=== PATIENT | female | born 1995 | race Caucasian/White ===

== ENCOUNTER 2016-10-07 11:00 | Outpatient (RCR) | payer BC, MEDICARE, OTHER, MEDICAID ==
[2016-10-08] MEDS ORDERED: [UNRECOGNIZED DRUG - OTHER] (12:03)
[2016-10-08] MEDS ORDERED: RIZA10TA4 PO (12:03)
[2016-10-08] MEDS ORDERED: [UNRECOGNIZED DRUG - CODE] PO (12:03)
[2016-10-08] MEDS ORDERED: [UNRECOGNIZED DRUG - OTHER] (12:03)
[2016-10-08] MEDS ORDERED: PROBCAP4 PO (12:03)
[2016-10-08] MEDS ORDERED: MAG-84TA PO (12:03)
[2016-10-08] MEDS ORDERED: BACL10TA2 PO (12:03)
[2016-10-08] MEDS ORDERED: LAMI200T3 PO (12:03)
[2016-10-08] MEDS ORDERED: TROK1CAP PO (12:03)
[2016-10-08] MEDS ORDERED: COLA100C PO (12:03)
[2016-10-08] MEDS ORDERED: VITA-115 PO (12:03)
== END 2016-10-08 ==
LOC: M ST 11:00
PROVIDERS: ATTEND Physician Assistant
DX: Z51.89 Encounter for other specified aftercare (principal); S06.890S Other specified intracranial injury without loss of consciousness, sequela; A52.17 General paresis; G81.11 Spastic hemiplegia affecting right dominant side; M76.31 Iliotibial band syndrome, right leg

== ENCOUNTER → 2016-10-18 | Day surgery (SDC) | payer BC, MEDICARE, OTHER, MEDICAID ==
[~2016-10-18] VITALS: Ht 160 cm; Wt 75.3 kg
[~2016-10-18] MED LIST: AMPICILLIN SOD/SULBACTAM SOD 3 GM in D5W MINI-BAG PLUS 100 ML IV ONE; BACL10TA2 PO; CHLORHEXIDINE GLUCONATE 0.12 % 15ML UDC (PERIDEX ORAL RINSE) As Ordered ONE; COLA100C PO; GLYCOPYRROLATE INJ 0.2 MG/ML 2 ML VIAL As Ordered ONE; HYDROmorphone HCL 1 MG/ML SYRINGE (J1170) IV PRN; LAMI200T3 PO; LIDOCAINE 2% INJ 100 MG/5 ML SDV (FOR ANES.) As Ordered ONE; LIDOCAINE 2% W/ EPINEPHRINE 1.7 ML DENTAL INJ As Ordered ONE; LIDOCAINE 2% W/ EPINEPHRINE 1.7 ML DENTAL INJ XX ONE; LR 1,000 ML IV SCH; MAG-84TA PO; MIDAZOLAM INJ 2 MG/2 ML VIAL (J2250) As Ordered ONE; NEOSTIGMINE 1MG/ML 5 ML SYRINGE (J2710) As Ordered ONE; ONDANSETRON 4MG/2ML VIAL (J2405) As Ordered ONE; ONDANSETRON 4MG/2ML VIAL (J2405) IV PRN; OXYMETAZOLINE NASAL SPRAY (AFRIN) As Ordered ONE; PROBCAP4 PO; PROPOFOL 200 MG/20 ML VIAL As Ordered ONE; RIZA10TA4 PO; TROK1CAP PO; VITA-115 PO; [UNRECOGNIZED DRUG - CODE] PO; [UNRECOGNIZED DRUG - OTHER]; [UNRECOGNIZED DRUG - OTHER]; [UNRECOGNIZED DRUG - OTHER] PO; dexameTHASONE 4 MG/ML 1ML VIAL (J1100) IV ONE; fentaNYL 100 MCG/2 ML INJECTION (J3010) As Ordered ONE
[2016-10-18] MEDS: fentaNYL 100 MCG/2 ML INJECTION (J3010) IV PRN ×2 (09:33→09:45)
--- NOTE | 2016-10-18 09:54 | RO ---
DATE OF PROCEDURE: 10/18/2016 PREOPERATIVE DIAGNOSIS: 1. 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 2. Erupted and symptomatic teeth #1 and 16 as well as impacted and symptomatic teeth #17 and 32. POSTOPERATIVE DIAGNOSIS: Status post: 1. 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 2. Erupted and symptomatic teeth #1 and 16 as well as impacted and symptomatic teeth #17 and 32. PROCEDURE PERFORMED: Surgical extraction of teeth #1, 16, 17 and 32. SURGEON: Keven Galaviz DMD, MD RESPIRATORY COORDINATOR: None. ANESTHESIA: General endotracheal anesthesia via nasal IVORY. SPECIMEN: None. INDICATIONS FOR SURGERY: Jennifer is a pleasant, 21-year-old female that was referred to my office for evaluation of her symptomatic wisdom teeth. Past medical history review reveals that she has an extensive history that includes a history of malignant brain tumor that was operated on her with subsequent postoperative complications that included strokes and seizures. She has had an extensive history of surgical interventions with no complications from an anesthesia standpoint. Her clinical exam reveals that she has erupted and carious teeth # 1 and 16, as well as impacted teeth #17 and 32 with inflamed and tender to palpation overlying mucosa and food impaction. Discussion with the patient and the mother regarding the treatment included performing the procedure in an operating room setting and in a controlled environment under the care of the anesthesiologist would be the safest way to go. All the risks, benefits and alternatives were explained to the patient, including the anesthesia risks and postoperative complications, including dry socket and infection. Complete history and physical was performed as well as an informed consent, which was signed by the mom, and they are in the patient's chart. DESCRIPTION OF PROCEDURE: On 10/18/2016, patient presented to the [facility] where she was met by myself and the anesthesiologist. Any last minute questions were addressed. The history and physical and the consent were updated. She was also given preoperative antibiotics in the form of 3 grams of intravenous (IV) Unasyn as well as 8 mg of IV Decadron. At that point, the patient was then taken back to the operating room. She was laid supine on the operating room table. Ulnar nerve protectors were placed. Noninvasive cardiac monitors were applied. At that point, the patient underwent smooth general anesthesia with a nasal IVORY intubation. The tube was then secured to the patient's head with a head wrap. At that point, the patient was then prepped and draped in the usual sterile fashion. A time-out procedure was performed to identify the patient, the procedure and any other precautions. At this point, the procedure began with the insertion of a moist throat pack into the patient's oropharynx, followed by the insertion of a bite block and the administration of 10 carpules of 2% lidocaine with 1:100,000 epinephrine as multiple local infiltrations around the teeth and mandibular blocks. At this point, the procedure proceeded with the routine elevator luxation and removal of teeth #16 and 17. Sockets were copiously irrigated. No sinus exposure was noted and gauze hemostasis was observed. At this point, attention was then given to the lower teeth where the same technique was performed for both sides, namely a full-thickness flap was released with a buccal hockey stick extension in sites #17 and 32, and this was extended to teeth #19 and 30 respectively. At this point, once the flap was fully reflected, the teeth where easily luxated and delivered. An abundant amount of granulation tissue was noted distal to the teeth. This tissue was curetted and removed and the sockets were copiously irrigated. Inferior alveolar nerve was not noted and the lingual cortices were intact. At this point, a single Gelfoam was placed in each socket and the flaps were then closed with #3-0 chromic sutures. Hemostasis was achieved and observed with gauze pressure. At this point, the oral cavity was irrigated and suctioned. The throat pack was removed and the patient was then awakened from general anesthesia and taken back to the postanesthesia care unit (PACU). Complications: None at the time of surgery. Estimated blood loss about 10 mL. Drains: There were no drains placed.
[2016-10-18 11:30] VITALS: BP 118/73
== END | disposition home or self-care (01) ==
LOC: M SDC 05:56
PROVIDERS: ATTEND Dentist
DX: K02.9 Dental caries, unspecified (principal); K01.1 Impacted teeth; E34.9 Endocrine disorder, unspecified; G89.29 Other chronic pain; M25.561 Pain in right knee; M79.671 Pain in right foot; G43.909 Migraine, unspecified, not intractable, without status migrainosus; N39.44 Nocturnal enuresis; K59.00 Constipation, unspecified; E55.9 Vitamin D deficiency, unspecified; R47.01 Aphasia; N25.89 Other disorders resulting from impaired renal tubular function; G40.A09 Absence epileptic syndrome, not intractable, without status epilepticus; R41.841 Cognitive communication deficit; S06.6X9S Traumatic subarachnoid hemorrhage with loss of consciousness of unspecified duration, sequela; Z79.899 Other long term (current) drug therapy; Z98.2 Presence of cerebrospinal fluid drainage device; Z87.2 Personal history of diseases of the skin and subcutaneous tissue; Z85.841 Personal history of malignant neoplasm of brain
CPT/HCPCS: 36415; 84702; 88300; D7210; J1100; J1170; J2250; J2405; J2710; J3010

== ENCOUNTER 2016-11-01 12:30 | Outpatient (RCR) | payer BC, MEDICARE, OTHER, MEDICAID ==
[~2016-11-01 12:30] MED LIST changes: -AMPICILLIN SOD/SULBACTAM SOD 3 GM in D5W MINI-BAG PLUS 100 ML IV ONE; -CHLORHEXIDINE GLUCONATE 0.12 % 15ML UDC (PERIDEX ORAL RINSE) As Ordered ONE; -GLYCOPYRROLATE INJ 0.2 MG/ML 2 ML VIAL As Ordered ONE; -HYDROmorphone HCL 1 MG/ML SYRINGE (J1170) IV PRN; -LIDOCAINE 2% INJ 100 MG/5 ML SDV (FOR ANES.) As Ordered ONE; -LIDOCAINE 2% W/ EPINEPHRINE 1.7 ML DENTAL INJ As Ordered ONE; -LIDOCAINE 2% W/ EPINEPHRINE 1.7 ML DENTAL INJ XX ONE; -LR 1,000 ML IV SCH; -MIDAZOLAM INJ 2 MG/2 ML VIAL (J2250) As Ordered ONE; -NEOSTIGMINE 1MG/ML 5 ML SYRINGE (J2710) As Ordered ONE; -ONDANSETRON 4MG/2ML VIAL (J2405) As Ordered ONE; -ONDANSETRON 4MG/2ML VIAL (J2405) IV PRN; -OXYMETAZOLINE NASAL SPRAY (AFRIN) As Ordered ONE; -PROPOFOL 200 MG/20 ML VIAL As Ordered ONE; -dexameTHASONE 4 MG/ML 1ML VIAL (J1100) IV ONE; -fentaNYL 100 MCG/2 ML INJECTION (J3010) As Ordered ONE
== END 2016-11-05 ==
LOC: M PT 12:30
PROVIDERS: ATTEND Physician Assistant
DX: Z51.89 Encounter for other specified aftercare (principal); D43.2 Neoplasm of uncertain behavior of brain, unspecified; S06.890S Other specified intracranial injury without loss of consciousness, sequela; A52.17 General paresis; G81.11 Spastic hemiplegia affecting right dominant side; M76.31 Iliotibial band syndrome, right leg

== ENCOUNTER → 2016-12-06 | Outpatient (RCR) | payer BC, MEDICARE, OTHER, MEDICAID ==
[~2016-12-06] MED LIST changes: -COLA100C PO; +COLA100C3 PO
== END ==
LOC: M PT 11-06 12:43 → M ST 11-13 10:46 → M PT 11-15 12:06 → M ST 11-18 10:47 → M PT 12-03 14:12 → M ST 12-04 11:00 → M PT 11:45
PROVIDERS: ATTEND Physician Assistant
DX: Z51.89 Encounter for other specified aftercare (principal); D43.2 Neoplasm of uncertain behavior of brain, unspecified; S06.890S Other specified intracranial injury without loss of consciousness, sequela; A52.17 General paresis; G81.11 Spastic hemiplegia affecting right dominant side; M76.31 Iliotibial band syndrome, right leg

== ENCOUNTER → 2016-12-18 | Outpatient (REF) | payer BC, MEDICARE, OTHER ==
[2016-12-18 19:14] LABS: BASO % 0.5 % (0.0-1.0); EOS # 0.3 K/mm3 (0.0-0.50); EOS % 4.1 % (0.0-3.0); LARGE UNSTAINED CELL # 0.2 K/mm3 (0.0-0.4); LARGE UNSTAINED CELL % 3.2 % (0.0-4.0); LYMPH # 2.7 K/mm3 (1.5-6.5); LYMPH % 32.3 % (24.0-44.0); MEAN CORPUSCULAR HEMOGLOBIN 29.2 pg (27.0-33.0); MEAN CORPUSCULAR VOLUME 88.4 fl (80.0-96.0); MONO # 0.6 K/mm3 (0.0-0.8); MONO % 8.4 % (0.0-5.0); NEUTROPHILS # 3.9 K/mm3 (1.8-7.7); NEUTROPHILS % 51.5 % (36.0-66.0); PLATELET COUNT, AUTOMATED 408 k/mm3 (150-450); RED CELL DISTRIBUTION WIDTH 12.2 % (11.5-14.5); WHITE BLOOD COUNT 7.5 K/mm3 (4.0-10.0)
[2016-12-18 19:15] LABS: ALBUMIN 4.3 GM/DL (3.2-5.2); ALBUMIN/GLOBULIN RATIO 1.39 (1.00-1.93); ALKALINE PHOSPHATASE 74 U/L (45-117); ALT/SGPT 42 U/L (12-78); ANION GAP 6 MEQ/L (8-16); AST/SGOT 13 U/L (15-37); BILIRUBIN,TOTAL 0.2 MG/DL (0.2-1.0); BLOOD UREA NITROGEN 17 MG/DL (7-18); CALCIUM LEVEL 9.3 MG/DL (8.5-10.1); CARBON DIOXIDE LEVEL 28 MEQ/L (21-32); CHLORIDE LEVEL 108 MEQ/L (98-107); CREATININE FOR GFR 1.08 MG/DL (0.55-1.02); GLUCOSE, FASTING 117 MG/DL (70-105); POTASSIUM SERUM 4.5 MEQ/L (3.5-5.1); SODIUM LEVEL 142 MEQ/L (136-145); TOTAL PROTEIN 7.4 GM/DL (6.4-8.2)
== END ==
LOC: M LABNEURO 17:07
PROVIDERS: ATTEND Psychiatry & Neurology Neurology
DX: R56.9 Unspecified convulsions (principal)

== ENCOUNTER 2017-01-01 11:00 | Outpatient (RCR) | payer BC, MEDICARE, OTHER, MEDICAID | END 2017-01-05 | LOC: M ST 11:00 | PROVIDERS: ATTEND Physician Assistant | DX: Z51.89 Encounter for other specified aftercare (principal); D43.2 Neoplasm of uncertain behavior of brain, unspecified; S06.890S Other specified intracranial injury without loss of consciousness, sequela; A52.17 General paresis; G81.11 Spastic hemiplegia affecting right dominant side; M76.31 Iliotibial band syndrome, right leg ==

== ENCOUNTER → 2017-01-01 | Outpatient (REF) | payer BC, MEDICARE, OTHER ==
[2017-01-01 17:35] LABS: PROLACTIN 8.5 NG/ML
[2017-01-01 17:36] LABS: FOLLICLE STIMULATING HORMONE 8.1 mIU/mL; LUTEINIZING HORMONE 10.6 mIU/mL
[2017-01-01 17:37] LABS: FREE T4 0.94 NG/DL (0.78-1.33)
== END ==
LOC: M LABNEURO 16:02
PROVIDERS: ATTEND Psychiatry & Neurology Neurology
DX: E23.0 Hypopituitarism (principal)

== ENCOUNTER 2017-01-27 10:52 | Outpatient (RCR) | payer BC, MEDICARE, OTHER, MEDICAID | END 2017-02-05 | LOC: M ST 10:52 | PROVIDERS: ATTEND Physician Assistant | DX: Z51.89 Encounter for other specified aftercare (principal); D43.2 Neoplasm of uncertain behavior of brain, unspecified; A52.17 General paresis; G81.11 Spastic hemiplegia affecting right dominant side; M76.31 Iliotibial band syndrome, right leg; S06.890S Other specified intracranial injury without loss of consciousness, sequela ==

== ENCOUNTER 2017-03-05 11:00 | Outpatient (RCR) | payer BC, MEDICARE, OTHER, MEDICAID ==
[~2017-03-05 11:00] MED LIST changes: -COLA100C3 PO; +COLA100C5 PO; +LAMI1TAB9 PO; -LAMI200T3 PO; -[UNRECOGNIZED DRUG - OTHER]; +[UNRECOGNIZED DRUG - OTHER] PO
== END 2017-03-07 ==
LOC: M ST 11:00
PROVIDERS: ATTEND Physician Assistant
DX: Z51.89 Encounter for other specified aftercare (principal); D43.2 Neoplasm of uncertain behavior of brain, unspecified; G81.11 Spastic hemiplegia affecting right dominant side; M76.31 Iliotibial band syndrome, right leg; S06.890S Other specified intracranial injury without loss of consciousness, sequela

== ENCOUNTER 2017-03-12 09:59 | Emergency (ER) | payer BC, MEDICARE, OTHER, MEDICAID ==
[~2017-03-12] VITALS: Ht 160 cm; Wt 76.0 kg
[2017-03-12] MEDS ORDERED: NIZO2SHA EX (10:24)
[2017-03-12] MEDS ORDERED: TYLE325C PO (10:24)
[2017-03-12] MEDS ORDERED: MAGN400C2 PO (10:24)
[2017-03-12] MEDS ORDERED: MILKSUS PO (10:24)
[2017-03-12] MEDS ORDERED: rectal suppository PR (10:24)
[2017-03-12] MEDS ORDERED: [UNRECOGNIZED DRUG - CODE] PO (10:24)
[2017-03-12] MEDS ORDERED: [UNRECOGNIZED DRUG - OTHER] PO (10:24)
[2017-03-12] MEDS ORDERED: cataplex (10:24)
[2017-03-12] MEDS ORDERED: IBUP200C10 PO (10:24)
[2017-03-12] MEDS ORDERED: MICO2POW TOP (10:24)
[2017-03-12 11:43] LABS: MEAN CORPUSCULAR HEMOGLOBIN 29.7 pg (27.0-33.0); MEAN CORPUSCULAR HGB CONC 33.5 g/dl (32.0-36.5); MEAN CORPUSCULAR VOLUME 88.8 fl (80.0-96.0); RED CELL DISTRIBUTION WIDTH 12.1 % (11.5-14.5); WHITE BLOOD COUNT 6.3 K/mm3 (4.0-10.0)
[2017-03-12 11:56] LABS: INR 0.98
[2017-03-12 12:39] LABS: CONTROL LINE HCG INT CTR LINE PRESENT
--- NOTE | 2017-03-12 12:40 | REP ---
CT HEAD WITHOUT CONTRAST: HISTORY: Trauma. COMPARISON: 02/13/2016 The patient is status post left temporoparietal craniotomy. Decreased attenuation is present in the left cerebral hemisphere. There is dilatation of the overlying cortical sulci and body of the left lateral ventricle. This represents gliosis and encephalomalacia. A small area of decreased attenuation is present in the right frontal lobe. This represents encephalomalacia. There is no intraparenchymal hemorrhage, mass or midline shift. The third and lateral ventricles are dilated consistent with mild volume loss. A shunt is present in the left lateral ventricle. There is no extracerebral collection. There is no fracture. The visualized sinuses are clear. IMPRESSION: 1. There is gliosis and encephalomalacia in the left cerebral hemisphere. 2. There is a small area of encephalomalacia in the right frontal lobe. 3. Mild volume loss. 4. A shunt is present in the left lateral ventricle. There is no hydrocephalus. Signed by You Gutierrez MD 03/12/2017 12:41 P
[2017-03-12 12:45] LABS: ANION GAP 7 MEQ/L (8-16); BLOOD UREA NITROGEN 15 MG/DL (7-18); CALCIUM LEVEL 9.3 MG/DL (8.5-10.1); CARBON DIOXIDE LEVEL 26 MEQ/L (21-32); CHLORIDE LEVEL 110 MEQ/L (98-107); GLUCOSE, FASTING 82 MG/DL (70-105); POTASSIUM SERUM 3.9 MEQ/L (3.5-5.1); SODIUM LEVEL 143 MEQ/L (136-145)
[2017-03-12 14:07] VITALS: BP 103/55
--- NOTE | 2017-03-13 07:24 | ECGEPIP ---
Stationary ECG Study [facility] - ED Test Date: 2017-03-12 Pat Name: TAMIE ARBOLEDA Department: Room: - Gender: F Senior Security Analyst: ELEN : [id number] Requested By: Morena Lloyd Order Number: [id number] Reading MD: Morena Lloyd Measurements Intervals [place] Rate: 83 P: 30 [place]: 183 QRS: 2 QRSD: 82 T: 24 QT: 356 QTc: 419 Interpretive Statements SINUS RHYTHM SIMIALR 12/29/14 Electronically Signed On 03-13-2017 7:24:11 EDT by Morena Lloyd
== END 2017-03-12 14:09 | disposition home or self-care (01) ==
LOC: M ED 09:59
DX: S09.90XA Unspecified injury of head, initial encounter (principal); W19.XXXA Unspecified fall, initial encounter; Y92.89 Other specified places as the place of occurrence of the external cause; Y93.89 Activity, other specified; Y99.9 Unspecified external cause status

== ENCOUNTER 2017-03-26 11:00 | Outpatient (RCR) | payer BC, MEDICARE, OTHER, MEDICAID ==
[~2017-03-26 11:00] MED LIST changes: +IBUP200C10 PO; +MAGN400C2 PO; +MICO2POW TOP; +MILKSUS PO; +NIZO2SHA EX; +TYLE325C PO; +[UNRECOGNIZED DRUG - CODE] PO; +[UNRECOGNIZED DRUG - OTHER] PO; +cataplex; +rectal suppository PR
== END 2017-04-07 ==
LOC: M ST 11:00
PROVIDERS: ATTEND Physician Assistant
DX: Z51.89 Encounter for other specified aftercare (principal); D43.2 Neoplasm of uncertain behavior of brain, unspecified; A52.17 General paresis; G81.11 Spastic hemiplegia affecting right dominant side; M76.31 Iliotibial band syndrome, right leg; S06.890S Other specified intracranial injury without loss of consciousness, sequela

== ENCOUNTER → 2017-06-25 | Outpatient (CLI) | payer BC, MEDICARE, OTHER, MEDICAID ==
[~2017-06-25] MED LIST changes: +ISOVUE-370 76% 100ML VIAL (Q9967) As Ordered ONE
--- NOTE | 2017-06-25 18:44 | REP ---
CT ANGIO HEAD: HISTORY: Aneurysm. CONTRAST: Isovue-370 75 mL. There is no aneurysm, arteriovenous malformation or atherosclerotic lesion. The A1 segment of the right anterior cerebral artery is hypoplastic. Major intracranial vessels are patent. The vertebral arteries are equal in size. IMPRESSION: Normal CT angio head. Signed by You Gutierrez MD 06/25/2017 06:48 P
== END ==
LOC: M RAD 17:21
PROVIDERS: ATTEND Psychiatry & Neurology Neurology
DX: I67.1 Cerebral aneurysm, nonruptured (principal)

== ENCOUNTER → 2017-08-07 | Outpatient (RCR) | payer BC, MEDICARE, OTHER, MEDICAID ==
[~2017-08-07] MED LIST changes: -ISOVUE-370 76% 100ML VIAL (Q9967) As Ordered ONE
== END ==
LOC: M PT 07-14 10:15
PROVIDERS: ATTEND Physical Medicine & Rehabilitation
DX: Z51.89 Encounter for other specified aftercare (principal); M25.859 Other specified joint disorders, unspecified hip; M76.31 Iliotibial band syndrome, right leg; M25.532 Pain in left wrist
CPT/HCPCS: 97116; 97140; 97162; G8978; G8979

== ENCOUNTER 2017-08-14 10:58 | Outpatient (RCR) | payer BC, MEDICARE, OTHER, MEDICAID | END 2017-09-07 | LOC: M PT 10:58 | DX: Z51.89 Encounter for other specified aftercare (principal); M25.859 Other specified joint disorders, unspecified hip | CPT/HCPCS: 97116 ==

== ENCOUNTER 2017-08-29 14:25 | Emergency (ER) | payer BC, OTHER, MEDICARE, MEDICAID ==
[~2017-08-29] VITALS: Ht 165.1 cm; Wt 81.8 kg
[2017-08-29 14:25] VITALS: BP 135/63
[2017-08-29] MEDS ORDERED: TIZA4CAP3 PO (14:43)
[2017-08-29] MEDS ORDERED: CLOB05OI EXT (15:54)
== END 2017-08-29 16:11 | disposition home or self-care (01) ==
LOC: M ED 14:25
DX: B35.3 Tinea pedis (principal); R56.9 Unspecified convulsions; R41.3 Other amnesia; Z98.2 Presence of cerebrospinal fluid drainage device; Z79.899 Other long term (current) drug therapy; J30.89 Other allergic rhinitis; Z88.8 Allergy status to other drugs, medicaments and biological substances

== ENCOUNTER → 2017-11-19 | Outpatient (CLI) | payer BC, OTHER, MEDICARE, MEDICAID ==
[2017-11-19 09:34] LABS: BASO % 0.5 % (0.0-1.0); EOS # 0.2 10^3/uL (0.0-0.50); EOS % 2.6 % (0.0-3.0); HEMATOCRIT 41.6 % (36.0-47.0); HEMOGLOBIN 13.6 g/dl (12.0-16.0); IMMATURE GRANULOCYTE % 0.2 % (0-3.0); LYMPH # 1.8 10^3/uL (1.5-6.5); LYMPH % 31.4 % (24.0-44.0); MEAN CORPUSCULAR HEMOGLOBIN 28.5 pg (27.0-33.0); MEAN CORPUSCULAR HGB CONC 32.7 g/dl (32.0-36.5); MONO # 0.6 10^3/uL (0.0-0.8); MONO % 9.7 % (0.0-5.0); NEUTROPHILS # 3.2 10^3/uL (1.8-7.7); NEUTROPHILS % 55.6 % (36.0-66.0); PLATELET COUNT, AUTOMATED 379 10^3/uL (150-450); RED BLOOD COUNT 4.78 10^6/uL (4.00-5.40); RED CELL DISTRIBUTION WIDTH 12.2 % (11.5-14.5); WHITE BLOOD COUNT 5.8 10^3/uL (4.0-10.0)
[2017-11-19 10:06] LABS: ALBUMIN 4.3 GM/DL (3.2-5.2); ALBUMIN/GLOBULIN RATIO 1.39 (1.00-1.93); ALKALINE PHOSPHATASE 71 U/L (45-117); ALT/SGPT 40 U/L (12-78); ANION GAP 12 MEQ/L (8-16); AST/SGOT 14 U/L (7-37); BILIRUBIN,TOTAL 0.3 MG/DL (0.2-1.0); BLOOD UREA NITROGEN 21 MG/DL (7-18); CALCIUM LEVEL 9.5 MG/DL (8.5-10.1); CARBON DIOXIDE LEVEL 24 MEQ/L (21-32); CHLORIDE LEVEL 107 MEQ/L (98-107); CREATININE FOR GFR 1.15 MG/DL (0.55-1.30); GLOMERULAR FILTRATION RATE > 60.0 (>60); GLUCOSE, FASTING 79 MG/DL (70-100); POTASSIUM SERUM 3.9 MEQ/L (3.5-5.1); SODIUM LEVEL 143 MEQ/L (136-145); TOTAL PROTEIN 7.4 GM/DL (6.4-8.2)
[2017-11-21 10:15] LABS: LAMOTRIGINE (LAMICTAL) 12.1 ug/mL (2.0-20.0)
== END ==
LOC: M LAB 08:27
DX: R56.9 Unspecified convulsions (principal)

== ENCOUNTER → 2018-03-12 | Outpatient (REF) | payer BC, MEDICARE, MEDICAID, OTHER ==
[2018-03-12 13:31] LABS: BASO % 0.6 % (0.0-1.0); EOS # 0.3 10^3/uL (0.0-0.50); EOS % 4.6 % (0.0-3.0); HEMATOCRIT 41.5 % (36.0-47.0); HEMOGLOBIN 13.3 g/dl (12.0-15.5); IMMATURE GRANULOCYTE % 0.3 % (0-3.0); MEAN CORPUSCULAR HEMOGLOBIN 28.8 pg (27.0-33.0); MEAN CORPUSCULAR VOLUME 89.8 fl (80.0-96.0); MONO # 0.6 10^3/uL (0.0-0.8); MONO % 7.9 % (0.0-5.0); NEUTROPHILS # 4.1 10^3/uL (1.8-7.7); NEUTROPHILS % 58.6 % (36.0-66.0); PLATELET COUNT, AUTOMATED 418 10^3/uL (150-450); RED BLOOD COUNT 4.62 10^6/uL (4.00-5.40); RED CELL DISTRIBUTION WIDTH 12.6 % (11.5-14.5)
[2018-03-12 14:12] LABS: ALBUMIN 4.2 GM/DL (3.2-5.2); ALBUMIN/GLOBULIN RATIO 1.14 (1.00-1.93); ALKALINE PHOSPHATASE 76 U/L (45-117); ALT/SGPT 42 U/L (12-78); ANION GAP 8 MEQ/L (8-16); AST/SGOT 17 U/L (7-37); BILIRUBIN,TOTAL 0.3 MG/DL (0.2-1.0); BLOOD UREA NITROGEN 19 MG/DL (7-18); CALCIUM LEVEL 8.8 MG/DL (8.5-10.1); CARBON DIOXIDE LEVEL 26 MEQ/L (21-32); CHLORIDE LEVEL 107 MEQ/L (98-107); CREATININE FOR GFR 1.01 MG/DL (0.55-1.30); GLOMERULAR FILTRATION RATE > 60.0 (>60); GLUCOSE, FASTING 75 MG/DL (70-100); POTASSIUM SERUM 3.6 MEQ/L (3.5-5.1); SODIUM LEVEL 141 MEQ/L (136-145); TOTAL PROTEIN 7.9 GM/DL (6.4-8.2)
[2018-03-16 15:40] LABS: TOPIRAMATE LEVEL 1.8 ug/mL (2.0-25.0)
[2018-03-16 15:40] LABS: LAMOTRIGINE (LAMICTAL) 12.8 ug/mL (2.0-20.0)
== END ==
LOC: M LABDRAW1 09:35
DX: G40.219 Localization-related (focal) (partial) symptomatic epilepsy and epileptic syndromes with complex partial seizures, intractable, without status epilepticus (principal); G81.11 Spastic hemiplegia affecting right dominant side; D33.0 Benign neoplasm of brain, supratentorial
CPT/HCPCS: 80053

== ENCOUNTER → 2018-08-23 | Outpatient (CLI) | payer BC, MEDICARE, MEDICAID ==
[~2018-08-23] MED LIST changes: +CLOB05OI EXT; -IBUP200C10 PO; +IBUP200C25 PO; +MILK12002 PO; -MILKSUS PO; +TIZA4CAP PO; +TROK1CAP5 PO; -[UNRECOGNIZED DRUG - CODE] PO
[2018-08-23 17:38] LABS: BASO % 0.5 % (0.0-1.0); EOS # 0.4 10^3/uL (0.0-0.50); EOS % 6.8 % (0.0-3.0); HEMATOCRIT 40.1 % (36.0-47.0); HEMOGLOBIN 12.5 g/dl (12.0-15.5); LYMPH # 2.6 10^3/uL (1.5-6.5); MEAN CORPUSCULAR HEMOGLOBIN 26.4 pg (27.0-33.0); MEAN CORPUSCULAR HGB CONC 31.2 g/dl (32.0-36.5); MEAN CORPUSCULAR VOLUME 84.8 fl (80.0-96.0); MONO # 0.5 10^3/uL (0.0-0.8); MONO % 9.1 % (0.0-5.0); NEUTROPHILS % 36.2 % (36.0-66.0); PLATELET COUNT, AUTOMATED 369 10^3/uL (150-450); RED BLOOD COUNT 4.73 10^6/uL (4.00-5.40); WHITE BLOOD COUNT 5.6 10^3/uL (4.0-10.0)
[2018-08-23 17:40] LABS: ALBUMIN 4.1 GM/DL (3.2-5.2); ALT/SGPT 42 U/L (12-78); BILIRUBIN,TOTAL 0.4 MG/DL (0.2-1.0); BLOOD UREA NITROGEN 19 MG/DL (7-18); CALCIUM LEVEL 8.9 MG/DL (8.5-10.1); CARBON DIOXIDE LEVEL 24 MEQ/L (21-32); CHLORIDE LEVEL 110 MEQ/L (98-107); CHOLESTEROL LEVEL 201 MG/DL (<200); CHOLESTEROL RISK RATIO 4.466 (<5); CREATININE FOR GFR 1.15 MG/DL (0.55-1.30); GLOMERULAR FILTRATION RATE > 60.0 (>60); GLUCOSE, FASTING 91 MG/DL (70-100); HDL CHOLESTEROL 45 MG/DL (>40); LDL CHOLESTEROL 138 MG/DL (<100); NON-HDL-C 156 MG/DL; POTASSIUM SERUM 4.6 MEQ/L (3.5-5.1); SODIUM LEVEL 144 MEQ/L (136-145); TOTAL PROTEIN 7.4 GM/DL (6.4-8.2); TRIGLYCERIDES LEVEL 88 MG/DL (<150)
[2018-08-26 10:12] LABS: LAMOTRIGINE (LAMICTAL) 10.8 ug/mL (2.0-20.0); TOPIRAMATE LEVEL 3.4 ug/mL (2.0-25.0)
== END ==
LOC: M WUC 09:26
PROVIDERS: ATTEND Psychiatry & Neurology Neurology
DX: R56.9 Unspecified convulsions (principal); Z51.81 Encounter for therapeutic drug level monitoring; Z79.899 Other long term (current) drug therapy

== ENCOUNTER → 2019-06-16 | Outpatient (CLI) | payer BC, MEDICARE, MEDICAID ==
[~2019-06-16] MED LIST changes: +MILK120011 PO; -MILK12002 PO
[2019-06-16 13:28] LABS: BASO # 0.1 10^3/uL (0.0-0.2); BASO % 0.9 % (0.0-1.0); EOS # 0.3 10^3/uL (0.0-0.5); EOS % 3.2 % (0.0-3.0); HEMATOCRIT 37.7 % (36.0-47.0); HEMOGLOBIN 11.3 g/dl (12.0-15.5); MEAN CORPUSCULAR HEMOGLOBIN 24.6 pg (27.0-33.0); MEAN CORPUSCULAR VOLUME 82.1 fl (80.0-96.0); MONO # 0.7 10^3/uL (0.0-0.8); MONO % 8.8 % (0.0-5.0); NEUTROPHILS # 4.1 10^3/uL (1.5-8.5); NEUTROPHILS % 49.7 % (36.0-66.0); PLATELET COUNT, AUTOMATED 536 10^3/uL (150-450); RED BLOOD COUNT 4.59 10^6/uL (4.00-5.40); WHITE BLOOD COUNT 8.2 10^3/uL (4.0-10.0)
[2019-06-16 14:09] LABS: ALBUMIN 4.3 GM/DL (3.2-5.2); ALT/SGPT 23 U/L (12-78); BILIRUBIN,TOTAL 0.2 MG/DL (0.2-1.0); BLOOD UREA NITROGEN 18 MG/DL (7-18); CALCIUM LEVEL 9.6 MG/DL (8.5-10.1); CARBON DIOXIDE LEVEL 26 MEQ/L (21-32); CHLORIDE LEVEL 109 MEQ/L (98-107); GLOMERULAR FILTRATION RATE > 60.0 (>60); GLUCOSE, FASTING 98 MG/DL (70-100); POTASSIUM SERUM 4.5 MEQ/L (3.5-5.1); SODIUM LEVEL 143 MEQ/L (136-145); TOTAL 25(OH) VITAMIN D 22.3 NG/ML (30.0-100.0); TOTAL PROTEIN 7.7 GM/DL (6.4-8.2); VITAMIN B12 LEVEL 568 PG/ML
[2019-06-18 14:29] LABS: LAMOTRIGINE (LAMICTAL) 6.8 ug/mL (2.0-20.0); TOPIRAMATE LEVEL 4.2 ug/mL (2.0-25.0)
== END ==
LOC: M SMT 10:46
PROVIDERS: ATTEND Psychiatry & Neurology Neurology
DX: G40.89 Other seizures (principal)

== ENCOUNTER → 2019-09-27 | Outpatient (CLI) | payer BC, MEDICARE, MEDICAID ==
[~2019-09-27] MED LIST changes: -RIZA10TA4 PO; +RIZA10TA58 PO
[2019-09-27 10:54] LABS: BASO # 0.1 10^3/uL (0.0-0.2); BASO % 0.7 % (0.0-1.0); EOS # 0.4 10^3/uL (0.0-0.5); EOS % 4.9 % (0.0-3.0); LYMPH % 34.8 % (24.0-44.0); MEAN CORPUSCULAR HEMOGLOBIN 23.7 pg (27.0-33.0); MEAN CORPUSCULAR HGB CONC 29.7 g/dl (32.0-36.5); MEAN CORPUSCULAR VOLUME 79.6 fl (80.0-96.0); MONO # 0.9 10^3/uL (0.0-0.8); MONO % 10.6 % (0.0-5.0); NEUTROPHILS # 4.2 10^3/uL (1.5-8.5); NEUTROPHILS % 48.8 % (36.0-66.0); PLATELET COUNT, AUTOMATED 581 10^3/uL (150-450); RED BLOOD COUNT 4.65 10^6/uL (4.00-5.40); WHITE BLOOD COUNT 8.5 10^3/uL (4.0-10.0)
[2019-09-27 11:34] LABS: ALBUMIN 4.6 GM/DL (3.2-5.2); ALT/SGPT 21 U/L (12-78); BILIRUBIN,TOTAL 0.5 MG/DL (0.2-1.0); BLOOD UREA NITROGEN 20 MG/DL (7-18); CALCIUM LEVEL 9.5 MG/DL (8.5-10.1); CARBON DIOXIDE LEVEL 25 MEQ/L (21-32); CHLORIDE LEVEL 108 MEQ/L (98-107); CHOLESTEROL LEVEL 204 MG/DL (< 200); CPK CREATINE PHOSPHOKINASE 91 U/L (26-192); CREATININE FOR GFR 1.14 MG/DL (0.55-1.30); GLOMERULAR FILTRATION RATE > 60.0 (>60); GLUCOSE, FASTING 89 MG/DL (70-100); LDH LACTATE DEHYDROGENASE 169 U/L (84-246); PHOSPHORUS LEVEL 3.6 MG/DL (2.5-4.9); POTASSIUM SERUM 5.2 MEQ/L (3.5-5.1); RHEUMATOID FACTOR QUANT < 10.0 IU/ML (<15.0); SODIUM LEVEL 141 MEQ/L (136-145); TOTAL PROTEIN 8.2 GM/DL (6.4-8.2); TRIGLYCERIDES LEVEL 102 MG/DL (<150)
[2019-09-27 11:44] LABS: ALBUMIN 4.6 GM/DL (3.2-5.2); ALT/SGPT 22 U/L (12-78); BILIRUBIN,TOTAL 0.4 MG/DL (0.2-1.0); BLOOD UREA NITROGEN 20 MG/DL (7-18); CALCIUM LEVEL 9.9 MG/DL (8.5-10.1); CARBON DIOXIDE LEVEL 25 MEQ/L (21-32); CHLORIDE LEVEL 108 MEQ/L (98-107); CHOLESTEROL LEVEL 203 MG/DL (<200); CHOLESTEROL RISK RATIO 5.075 (<5); CREATININE FOR GFR 1.14 MG/DL (0.55-1.30); GLOMERULAR FILTRATION RATE > 60.0 (>60); GLUCOSE, FASTING 86 MG/DL (70-100); HDL CHOLESTEROL 40 MG/DL (>40); LDL CHOLESTEROL 142 MG/DL (<100); NON-HDL-C 163 MG/DL; SODIUM LEVEL 141 MEQ/L (136-145); TOTAL 25(OH) VITAMIN D 32.4 NG/ML (30.0-100.0); TRIGLYCERIDES LEVEL 103 MG/DL (<150)
[2019-09-29 14:31] LABS: ANTINUCLEAR ANTIBODIES DIRECT Negative (Negative); LAMOTRIGINE (LAMICTAL) 7.8 ug/mL (2.0-20.0); TOPIRAMATE LEVEL 3.7 ug/mL (2.0-25.0)
== END ==
LOC: M PLALAB 08:20
PROVIDERS: ATTEND Physician Assistant
DX: R41.81 Age-related cognitive decline (principal); N25.9 Disorder resulting from impaired renal tubular function, unspecified; G40.201 Localization-related (focal) (partial) symptomatic epilepsy and epileptic syndromes with complex partial seizures, not intractable, with status epilepticus; E55.9 Vitamin D deficiency, unspecified; E78.5 Hyperlipidemia, unspecified

== ENCOUNTER → 2020-03-01 | Outpatient (CLI) | payer BC, MEDICARE, MEDICAID ==
[2020-03-01 12:52] LABS: APPEARANCE, URINE CLEAR (CLEAR); BACTERIA, URINE AUTO 1+ (NEGATIVE); BILIRUBIN, URINE AUTO NEGATIVE (NEGATIVE); BLOOD, URINE BLOOD NEGATIVE (NEGATIVE); COLOR, URINE STRAW (YELLOW); GLUCOSE, URINE (UA) AUTO NEGATIVE (NEGATIVE); KETONE, URINE AUTO NEGATIVE (NEGATIVE); LEUKOCYTE ESTERASE, URINE AUTO NEGATIVE (NEGATIVE); NITRITE, URINE AUTO NEGATIVE (NEGATIVE); PROTEIN, URINE AUTO NEGATIVE (NEGATIVE); RBC, URINE AUTO 1 /HPF (0-3); SPECIFIC GRAVITY URINE AUTO 1.005 (1.002-1.035); SQUAMOUS EPITHELIAL CELL UR AU 1 /HPF (0-6); UROBILINOGEN, URINE AUTO 0.2 mg/dL (0.0-2.0); WBC, URINE AUTO 0 /HPF (0-3)
[2020-03-01 12:55] LABS: BASO # 0.1 10^3/uL (0.0-0.2); BASO % 0.7 % (0.0-1.0); EOS # 0.4 10^3/uL (0.0-0.5); EOS % 5.6 % (0.0-3.0); HEMATOCRIT 43.5 % (36.0-47.0); HEMOGLOBIN 13.5 g/dl (12.0-15.5); LYMPH # 2.1 10^3/uL (1.5-5.0); LYMPH % 29.4 % (24.0-44.0); MEAN CORPUSCULAR HEMOGLOBIN 27.8 pg (27.0-33.0); MEAN CORPUSCULAR VOLUME 89.7 fl (80.0-96.0); MONO # 0.7 10^3/uL (0.0-0.8); MONO % 8.9 % (0.0-5.0); NEUTROPHILS % 55.1 % (36.0-66.0); PLATELET COUNT, AUTOMATED 426 10^3/uL (150-450); RED BLOOD COUNT 4.85 10^6/uL (4.00-5.40); WHITE BLOOD COUNT 7.3 10^3/uL (4.0-10.0)
[2020-03-01 13:33] LABS: ALBUMIN 4.2 GM/DL (3.2-5.2); ALT/SGPT 28 U/L (12-78); BILIRUBIN,TOTAL 0.3 MG/DL (0.2-1.0); BLOOD UREA NITROGEN 20 MG/DL (7-18); CALCIUM LEVEL 9.5 MG/DL (8.5-10.1); CARBON DIOXIDE LEVEL 26 MEQ/L (21-32); CHLORIDE LEVEL 109 MEQ/L (98-107); CHOLESTEROL LEVEL 212 MG/DL (<200); CHOLESTEROL RISK RATIO 5.435 (<5); CREATININE FOR GFR 1.17 MG/DL (0.55-1.30); GLOMERULAR FILTRATION RATE > 60.0 (>60); GLUCOSE, FASTING 95 MG/DL (70-100); HDL CHOLESTEROL 39 MG/DL (>40); LDL CHOLESTEROL 149 MG/DL (<100); NON-HDL-C 173 MG/DL; POTASSIUM SERUM 4.7 MEQ/L (3.5-5.1); SODIUM LEVEL 142 MEQ/L (136-145); TOTAL PROTEIN 7.7 GM/DL (6.4-8.2); TRIGLYCERIDES LEVEL 120 MG/DL (<150)
== END ==
LOC: M WUC 08:35
PROVIDERS: ATTEND Physician Assistant
DX: E78.5 Hyperlipidemia, unspecified (principal); R41.841 Cognitive communication deficit

== ENCOUNTER → 2020-07-16 | Outpatient (REF) | payer BC, MEDICARE, MEDICAID | LOC: M LAB REF 12:08 | PROVIDERS: ATTEND Nurse Practitioner Family | DX: J04.0 Acute laryngitis (principal) ==

== ENCOUNTER → 2021-03-21 | Outpatient (CLI) | payer OTHER, MEDICARE, MEDICAID ==
[2021-03-21 09:50] LABS: ALBUMIN 4.4 GM/DL (3.2-5.2); ALT/SGPT 46 U/L (12-78); BILIRUBIN,TOTAL 0.3 MG/DL (0.2-1.0); BLOOD UREA NITROGEN 17 MG/DL (7-18); CALCIUM LEVEL 9.7 MG/DL (8.5-10.1); CARBON DIOXIDE LEVEL 24 MEQ/L (21-32); CHLORIDE LEVEL 109 MEQ/L (98-107); CHOLESTEROL LEVEL 211 MG/DL (<200); CHOLESTEROL RISK RATIO 4.906 (<5); CREATININE FOR GFR 1.11 MG/DL (0.55-1.30); GLOMERULAR FILTRATION RATE > 60.0 (>60); GLUCOSE, FASTING 93 MG/DL (70-100); HDL CHOLESTEROL 43 MG/DL (>40); LDL CHOLESTEROL 146 MG/DL (<100); NON-HDL-C 168 MG/DL; POTASSIUM SERUM 4.2 MEQ/L (3.5-5.1); SODIUM LEVEL 143 MEQ/L (136-145); TRIGLYCERIDES LEVEL 112 MG/DL (<150)
[2021-03-21 09:51] LABS: TOTAL 25(OH) VITAMIN D 32.2 NG/ML (30.0-100.0)
== END ==
LOC: M LAB 08:30
PROVIDERS: ATTEND Physician Assistant
DX: E78.5 Hyperlipidemia, unspecified (principal)

== ENCOUNTER → 2021-07-27 | Outpatient (CLI) | payer OTHER, MEDICARE, MEDICAID ==
[2021-07-27 10:46] LABS: BASO # 0.1 10^3/uL (0.0-0.2); BASO % 1.1 % (0.0-1.0); EOS # 0.3 10^3/uL (0.0-0.5); EOS % 3.9 % (0.0-3.0); HEMATOCRIT 42.9 % (36.0-47.0); HEMOGLOBIN 13.8 g/dl (12.0-15.5); LYMPH # 2.5 10^3/uL (1.5-5.0); LYMPH % 37.2 % (24.0-44.0); MEAN CORPUSCULAR HEMOGLOBIN 28.5 pg (27.0-33.0); MEAN CORPUSCULAR HGB CONC 32.2 g/dl (32.0-36.5); MEAN CORPUSCULAR VOLUME 88.6 fl (80.0-96.0); MONO # 0.6 10^3/uL (0.0-0.8); MONO % 8.6 % (2.0-8.0); NEUTROPHILS # 3.3 10^3/uL (1.5-8.5); NEUTROPHILS % 48.9 % (36.0-66.0); PLATELET COUNT, AUTOMATED 407 10^3/uL (150-450); RED BLOOD COUNT 4.84 10^6/uL (4.00-5.40); WHITE BLOOD COUNT 6.7 10^3/uL (4.0-10.0)
[2021-07-27 11:10] LABS: ALBUMIN 4.1 GM/DL (3.2-5.2); BILIRUBIN,TOTAL 0.4 MG/DL (0.2-1.0); CALCIUM LEVEL 9.4 MG/DL (8.5-10.1); CREATININE FOR GFR 1.19 MG/DL (0.55-1.30); GLOMERULAR FILTRATION RATE 58.8 (>60); TOTAL PROTEIN 7.3 GM/DL (6.4-8.2)
[2021-07-30 19:07] LABS: LAMOTRIGINE (LAMICTAL) 6.8 ug/mL (2.0-20.0); TOPIRAMATE LEVEL 3.4 ug/mL (2.0-25.0)
== END ==
LOC: M LAB 08:22
PROVIDERS: ATTEND Psychiatry & Neurology Neurology
DX: R56.9 Unspecified convulsions (principal)

== ENCOUNTER → 2022-06-06 | Outpatient (CLI) | payer OTHER, MEDICARE, MEDICAID ==
[2022-06-06 10:30] LABS: BASO # 0.1 10^3/uL (0.0-0.2); BASO % 0.6 % (0.0-1.0); EOS # 0.3 10^3/uL (0.0-0.5); EOS % 3.7 % (0.0-3.0); HEMOGLOBIN 13.5 g/dl (12.0-15.5); LYMPH # 2.2 10^3/uL (1.5-5.0); LYMPH % 27.7 % (24.0-44.0); MEAN CORPUSCULAR HEMOGLOBIN 28.5 pg (27.0-33.0); MEAN CORPUSCULAR HGB CONC 30.7 g/dl (32.0-36.5); MEAN CORPUSCULAR VOLUME 92.8 fl (80.0-96.0); MONO # 0.7 10^3/uL (0.0-0.8); MONO % 8.7 % (2.0-8.0); NEUTROPHILS # 4.6 10^3/uL (1.5-8.5); PLATELET COUNT, AUTOMATED 476 10^3/uL (150-450); RED BLOOD COUNT 4.74 10^6/uL (4.00-5.40); WHITE BLOOD COUNT 7.9 10^3/uL (4.0-10.0)
[2022-06-06 10:54] LABS: ERYTHROCYTE SEDIMENTATION RATE 6 mm/hr (0-20)
[2022-06-06 10:59] LABS: ALBUMIN 4.2 GM/DL (3.2-5.2); ALT/SGPT 34 U/L (12-78); BILIRUBIN,TOTAL 0.2 MG/DL (0.2-1.0); BLOOD UREA NITROGEN 16 MG/DL (7-18); CALCIUM LEVEL 10.2 MG/DL (8.5-10.1); CARBON DIOXIDE LEVEL 26 MEQ/L (21-32); CHLORIDE LEVEL 110 MEQ/L (98-107); CREATININE FOR GFR 1.15 MG/DL (0.55-1.30); GLOMERULAR FILTRATION RATE > 60.0 (>60); GLUCOSE, FASTING 113 MG/DL (70-100); POTASSIUM SERUM 4.6 MEQ/L (3.5-5.1); RHEUMATOID FACTOR QUANT < 10.0 IU/ML (<15.0); SODIUM LEVEL 141 MEQ/L (136-145); TOTAL PROTEIN 7.9 GM/DL (6.4-8.2)
[2022-06-06 11:23] LABS: TOTAL 25(OH) VITAMIN D 35.3 NG/ML (30.0-100.0)
[2022-06-06 11:24] LABS: VITAMIN B12 LEVEL 1321 PG/ML (247-911)
== END ==
LOC: M LAB 09:26
PROVIDERS: ATTEND Psychiatry & Neurology Neurology
DX: R56.1 Post traumatic seizures (principal); M79.604 Pain in right leg; Z51.81 Encounter for therapeutic drug level monitoring; Z79.899 Other long term (current) drug therapy

== ENCOUNTER → 2023-11-26 | Outpatient (CLI) | payer OTHER, MEDICARE, MEDICAID | LOC: M WUC 13:51 | PROVIDERS: ATTEND Physician Assistant | DX: M79.671 Pain in right foot (principal) ==

== ENCOUNTER → 2025-01-17 | Outpatient (CLI) | payer OTHER, MEDICARE, MEDICAID ==
[~2025-01-17] MED LIST changes: -TROK1CAP PO; -TROK1CAP5 PO; +[UNRECOGNIZED DRUG - CODE] PO; +[UNRECOGNIZED DRUG - CODE] PO
== END ==
LOC: M WUC 15:48
PROVIDERS: ATTEND Student in an Organized Health Care Education/Training Program
DX: M25.571 Pain in right ankle and joints of right foot (principal)

== ENCOUNTER 2025-08-05 10:07 | Emergency (ER) | payer OTHER, MEDICARE, MEDICAID ==
[~2025-08-05] VITALS: Ht 157.5 cm; Wt 85.1 kg
[2025-08-05 12:12] VITALS: BP 115/85; TEMP 98.4; O2SAT 98
== END 2025-08-05 12:12 | disposition home or self-care (01) ==
LOC: M ED 10:07
DX: L02.512 Cutaneous abscess of left hand (principal); L03.012 Cellulitis of left finger; J45.909 Unspecified asthma, uncomplicated; R56.9 Unspecified convulsions; Z79.899 Other long term (current) drug therapy; Z88.8 Allergy status to other drugs, medicaments and biological substances